=== PATIENT | male | born 1950 | race African-American/Black ===

== ENCOUNTER 2023-12-19 14:47 | Emergency (ER) | payer OTHER ==
[~2023-12-19] VITALS: Ht 180.3 cm; Wt 73.0 kg
[2023-12-19 14:50] VITALS: O2SAT 97
[2023-12-19 16:10] LABS: HEMATOCRIT. 38.4 % (42.0-52.0); MEAN CORPUSCULAR HEMOGLOBIN 29.4 pg (28.0-32.0); MEAN CORPUSCULAR HGB CONC 33.8 g/dL (31.0-37.0); MEAN PLATELET VOLUME 8.6 fl (7.4-10.4); PLATELET 219 x1000/uL (130-400); RED BLOOD CELL COUNT 4.42 mill/uL (4.7-6.1); RED CELL DISTRIBUTION WIDTH 13.1 % (11.6-14.6); WHITE BLOOD COUNT 9.4 x1000/uL (4.5-11.0)
[2023-12-19 16:12] LABS: DIFFERENTIAL COMMENT 1
[2023-12-19 16:19] LABS: CARBON DIOXIDE 25 mEq/L (21-32); CHLORIDE 104 mEq/L (98-107); POTASSIUM 3.8 mEq/L (3.5-5.1); SODIUM 137 mEq/L (136-145)
[2023-12-19 16:24] LABS: GLUCOSE 316 mg/dL (70-105)
[2023-12-19 16:25] LABS: UREA NITROGEN BLOOD 14 mg/dL (9-23)
[2023-12-19 16:26] LABS: ALANINE AMINOTRANSFERASE 11 IU/L (10-49)
[2023-12-19 16:27] LABS: ALBUMIN 4.2 g/dL (3.2-4.8); ASPARTATE AMINOTRANSFERASE 15 IU/L (<34); BILIRUBIN TOTAL 1.4 mg/dL (0.1-1.0); PROTEIN TOTAL 6.8 g/dL (6.0-8.3)
[2023-12-19 16:33] LABS: TROPONIN I HIGH SENSITIVITY < 4 ng/L (3.0-53)
[2023-12-19 18:41] LABS: PLATELET ESTIMATE NORMAL
[2023-12-19 20:05] VITALS: BP 165/61; PULSE 69; RESP 18; TEMP 98.9
== END 2023-12-19 20:20 | disposition short-term general hospital (02) ==
LOC: ER 14:47 → EDBEDREQ 15:39 → CANBEDREQ 17:56 → ER 20:20
DX: R55 Syncope and collapse (principal); E11.9 Type 2 diabetes mellitus without complications; I10 Essential (primary) hypertension
CPT/HCPCS: 36415; 71045; 80053; 83880; 84484; 85025; 93005; 99285